=== PATIENT | female | born 1950 | race Caucasian/White ===

== ENCOUNTER → 2018-04-11 | Outpatient (CLI) | payer MEDICARE, OTHER ==
[~2018-04-11] MED LIST: ASPI-496 PO; MEDR10TA PO; MULT-709 PO; OMNIPAQUE 350 MG/ML, 100ML BOTTLE ONE
== END | disposition home or self-care (01) ==
LOC: CFH 10:17
PROVIDERS: ATTEND Specialist
DX: K57.30 Diverticulosis of large intestine without perforation or abscess without bleeding (principal); M51.36 Other intervertebral disc degeneration, lumbar region; M43.16 Spondylolisthesis, lumbar region; K76.89 Other specified diseases of liver; R19.09 Other intra-abdominal and pelvic swelling, mass and lump
CPT/HCPCS: 74177; Q9967

== ENCOUNTER 2018-04-14 08:14 | Day surgery (SDC) | payer MEDICARE, OTHER ==
[~2018-04-14] VITALS: Ht 162.6 cm; Wt 79.4 kg
[~2018-04-14 08:14] MED LIST changes: +BUPIVACAINE/PF 0.25% ONE; +CEFAZOLIN 1,000 MG ONE; +EPINEPHRINE 1 MG/ML, 1ML ONE; +FENTANYL PF 250 MCG/5ML ONE; +GLYCOPYRROLATE 0.2MG/1ML, 5ML ONE; +HEPARIN 1,000 UNITS/ML, 10ML ONE; +INDOCYANINE GREEN 25 MG VIAL ONE; -MEDR10TA PO; +MIDAZOLAM 1 MG/ML, 2ML ONE; +NEOSTIGMINE 1 MG/ML, 10ML ONE; -OMNIPAQUE 350 MG/ML, 100ML BOTTLE ONE; +ONDANSETRON 2MG/ML, 2ML ONE; +PROPOFOL 10 MG/ML, 20ML ONE; +ROCURONIUM 10MG/ML,5ML ONE
[2018-04-14] MEDS ORDERED: LACTATED RINGERS 1,000 ML IV SCH (08:39)
[2018-04-14] MEDS ORDERED: GABAPENTIN 300 MG CAPSULE PO ONE (09:00)
[2018-04-14] MEDS ORDERED: ACETAMINOPHEN 500 MG TABLET PO ONE (09:00)
[2018-04-14 09:09] VITALS: BP 111/69
[2018-04-14] MEDS ORDERED: MEDR10TA PO (09:09)
[2018-04-14] MEDS ORDERED: DEXAMETHASONE 4 MG/ML, 1ML ONE (09:58)
[2018-04-14] MEDS ORDERED: PHENYLEPHRINE 10 MG/ML ONE (09:58)
[2018-04-14] MEDS ORDERED: PROMETHAZINE 25 MG SUPP PR PRN (10:00)
[2018-04-14] MEDS ORDERED: PROMETHAZINE 25 MG/ML, 1ML IV PRN (10:00)
[2018-04-14] MEDS ORDERED: ONDANSETRON 2MG/ML, 2ML IV PRN (10:00)
[2018-04-14] MEDS ORDERED: hydrALAzine 20 MG/ML, 1ML IV PRN (10:00)
[2018-04-14] MEDS ORDERED: PROMETHAZINE 25 MG/ML, 1ML IM PRN ×2 (10:00)
[2018-04-14] MEDS ORDERED: HYDROmorphone 2 MG/ML, 1ML IVPush PRN (10:00)
[2018-04-14] MEDS ORDERED: MORPHINE SULFATE 4 MG/ML, 1ML IVPush PRN (10:00)
[2018-04-14] MEDS ORDERED: ONDANSETRON ODT 8 MG PO PRN (10:00)
[2018-04-14] MEDS ORDERED: FENTANYL PF 100 MCG/2ML IV PRN (10:00)
[2018-04-14] MEDS ORDERED: PROMETHAZINE 12.5 MG SUPP PR PRN (10:00)
[2018-04-14] MEDS ORDERED: MEPERIDINE/PF 25MG/0.5ML IVPush PRN (10:00)
[2018-04-14] MEDS ORDERED: OXYcodone 5 MG/5 ML ORAL.SOL UDC PO PRN (10:00)
[2018-04-14] MEDS ORDERED: ACETAMINOPHEN 325 MG TABLET PO PRN (10:00)
[2018-04-14] MEDS ORDERED: LABETALOL 5MG/ML, 20ML IV PRN (10:00)
[2018-04-14] MEDS ORDERED: OXYcodone 5 MG/5 ML ORAL.SOL UDC ONE (11:51)
[2018-04-14] MEDS ORDERED: FENTANYL PF 100 MCG/2ML ONE (11:51)
[2018-04-14] MEDS ORDERED: MEPERIDINE/PF 25MG/ML,1ML ONE (11:53)
== END 2018-04-14 15:05 | disposition home or self-care (01) ==
LOC: OUT 08:14
PROVIDERS: ATTEND Specialist
DX: C54.1 Malignant neoplasm of endometrium (principal); R59.1 Generalized enlarged lymph nodes; Z86.718 Personal history of other venous thrombosis and embolism; Z79.82 Long term (current) use of aspirin; Z88.1 Allergy status to other antibiotic agents; Z88.2 Allergy status to sulfonamides; Z88.8 Allergy status to other drugs, medicaments and biological substances; Z98.42 Cataract extraction status, left eye; Z98.41 Cataract extraction status, right eye; Z90.13 Acquired absence of bilateral breasts and nipples; Z98.890 Other specified postprocedural states; Z72.89 Other problems related to lifestyle; Z87.891 Personal history of nicotine dependence; Z96.1 Presence of intraocular lens
CPT/HCPCS: 36415; 38571; 58552; 71046; 86850; 86900; 86923; 88112; 88305; 88307; 88331; 88333; 93005; J0171; J0690; J1100; J1644; J2175; J2250; J2370; J2405; J2704; J2710; J3010; J3490; J7120; 88341; 88342; 88360

== ENCOUNTER → 2018-08-20 | Outpatient (CLI) | payer MEDICARE, OTHER ==
[~2018-08-20] VITALS: Ht 162.6 cm; Wt 76.8 kg
[~2018-08-20] MED LIST changes: +ASPI-650 PO; -BUPIVACAINE/PF 0.25% ONE; +CARBOPLATIN IV ONE; -CEFAZOLIN 1,000 MG ONE; +DIPHENHYDRAMINE 50 MG/ML, 1ML IVPush ONE; -EPINEPHRINE 1 MG/ML, 1ML ONE; +FAMOTIDINE 20 MG/2 ML IVPush ONE; -FENTANYL PF 250 MCG/5ML ONE; +FILTER 0.22 MICRON IV ONE; -GLYCOPYRROLATE 0.2MG/1ML, 5ML ONE; -HEPARIN 1,000 UNITS/ML, 10ML ONE; -INDOCYANINE GREEN 25 MG VIAL ONE; +MEDR10TA PO; -MIDAZOLAM 1 MG/ML, 2ML ONE; -NEOSTIGMINE 1 MG/ML, 10ML ONE; +ONDANSETRON 16 MG, DEXAMETHASONE 20 MG in SODIUM CHLORIDE 0.9% 50 ML IVPB ONE; -ONDANSETRON 2MG/ML, 2ML ONE; +PACLITAXEL IV ONE; +PROMETHAZINE 25 MG/ML, 1ML IM PRN; -PROPOFOL 10 MG/ML, 20ML ONE; -ROCURONIUM 10MG/ML,5ML ONE; +SODIUM CHLORIDE 0.9% IV ONE
[2018-08-20 09:25] VITALS: BP 138/83
== END | disposition home or self-care (01) ==
LOC: INFUSION 09:19
PROVIDERS: ATTEND Specialist
DX: Z51.11 Encounter for antineoplastic chemotherapy (principal); C54.1 Malignant neoplasm of endometrium
CPT/HCPCS: 96367; 96375; 96413; 96415; 96417; J1100; J1200; J2405; J3490; J7040; J7050; J9045; J9267

== ENCOUNTER 2018-09-10 08:56 | Outpatient (CLI) | payer MEDICARE, OTHER ==
[~2018-09-10] VITALS: Ht 162.6 cm; Wt 76.2 kg
[2018-09-10 10:03] VITALS: BP 114/64
== END 2018-09-10 23:59 | disposition home or self-care (01) ==
LOC: INFUSION 08:56
PROVIDERS: ATTEND Specialist
DX: Z51.11 Encounter for antineoplastic chemotherapy (principal); C54.1 Malignant neoplasm of endometrium
CPT/HCPCS: 96367; 96375; 96413; 96415; 96417; J1100; J1200; J2405; J3490; J7040; J7050; J9045; J9267

== ENCOUNTER 2018-10-01 10:10 | Outpatient (CLI) | payer MEDICARE, OTHER | END 2018-10-01 23:59 | disposition home or self-care (01) | LOC: CFH 10:10 | PROVIDERS: ATTEND Physician Assistant | DX: C54.1 Malignant neoplasm of endometrium (principal); I26.99 Other pulmonary embolism without acute cor pulmonale; K76.0 Fatty (change of) liver, not elsewhere classified; I70.0 Atherosclerosis of aorta; M51.37 Other intervertebral disc degeneration, lumbosacral region; M43.16 Spondylolisthesis, lumbar region; K76.89 Other specified diseases of liver | CPT/HCPCS: 71260; 74177; Q9967 ==